=== PATIENT | female | born 2005 | race Caucasian/White ===

== ENCOUNTER 2025-01-19 12:54 | Emergency (ER) | payer BC, SELFPAY ==
[2025-01-19 12:59] LABS: Glucose - Point of Care 279 mg/dl (70-99)
--- NOTE | 2025-01-19 14:44 | ED.GENMED ---
History of Present Illness
General
Chief Complaint: Blood Sugar Problem
Source: patient
Exam Limitations: none
Time Seen by Provider: 01/19/25 14:12
Nursing documentation reviewed up to this point in time: agreed with
History of Present Illness
History of Present Illness:
see MDM
Past History
Past History
ED Past Medical History: Hypothyroidism (hashimotos)
Social History
Tobacco: Non-smoker
Alcohol: None
Drug: None
Personal: Single
Living: with family
Employment: Employed
Review of Systems
Review of Systems
Allergies reviewed?: Yes
All Other Systems: Not applicable
Phy Exam
Physical Exam
Physical Exam:
GENERAL: Alert , in no apparent distress
EYE: pupils equal and reactive, normal EOMs,
NECK: Supple
ENT: o/p clr, mmm.
CARDIAC: Regular rate and rhythm .
LUNGS: Clear breath sounds bilaterally, no acute respiratory distress, no wheezes/rales/rhonchi
ABDOMEN: Soft, without focal tenderness, no r/g, no cvat, normal bowel sounds
NEUROLOGICAL: Alert and oriented, no focal neuro deficits
SKIN: Warm and dry, skin intact.
MUSCULOSKELETAL: No edema, well perfused. neg clara's sign
PSYCH: Normal and appropriate interaction.
Course
Orders/Labs/Results
Orders:
Orders
01/19/25 14:15
0.9% Sodium Chloride 1000 ml [Nss] 1,000 ml IV BOLUS
01/19/25 14:16
Test Result ONCE
01/19/25 14:45
BHB [B-Hydroxybutyrate] Urgent
Comprehensive Metabolic Panel Urgent
HCG, Serum Qualitative Screen Urgent
Lactic Acid Urgent
TSH Reflex To Free T4 Urgent
Urinalysis Reflex To Culture Urgent
Date Specimen was Collected: 01/19/25
Time Specimen was Collected: 14:17
Urine Microscopic Reflex Cult Urgent
Urine Culture Urgent
ANGELICA Source: U
Specimen Description:
Date Specimen was Collected: 01/19/25
Time Specimen was Collected: 14:17
01/19/25 16:07
Complete Blood Count/With Diff Urgent
Glycohemoglobin (HgbA1c) Urgent
01/19/25 16:33
Bedside Glucose- Treatment ONCE
Abnormal Lab Results
01/19/25 01/19/25 01/19/25
12:58 14:45 16:07
RBC 3.39 L 10^6/uL
(4.20-5.40)
Hgb 10.5 L g/dL
(12.0-16.0)
Hct 29.5 L %
(37.0-47.0)
Absolute Neuts (auto) 6.8 H 10^3/uL
(1.4-6.5)
Lymphocytes % 19.6 L %
(20.5-51.1)
Sodium 132 L mmol/L
(135-145)
Carbon Dioxide 20 L mmol/L
(22-30)
Creatinine 0.5 L mg/dL
(0.6-1.0)
Glucose 237 H mg/dl
(70-99)
Hemoglobin A1c 8.2 H %
(4.0-5.9)
Total Protein 8.6 H g/dl
(6.3-8.2)
Albumin 5.2 H g/dl
(3.5-5.0)
Urine Ketones 3+ A
(Negative)
Ur Occult Blood Reflex 2+ A
(Negative)
Leukocyte Esterase Rfl 1+ A
(Negative)
Urine RBC 3-6 A /HPF
(0-2)
Urine Bacteria (Reflex) Few A
(Negative)
Urine Glucose 4+ A
(Negative)
Urine Albumin (Reflex) 2+ A
(Neg - Trace)
B-Hydroxybutyrate 3.61 H mmol/L
(0.02-0.27)
POC Glucose 279 H mg/dl
(70-99)
01/19/25
16:51
RBC
Hgb
Hct
Absolute Neuts (auto)
Lymphocytes %
Sodium
Carbon Dioxide
Creatinine
Glucose
Hemoglobin A1c
Total Protein
Albumin
Urine Ketones
Ur Occult Blood Reflex
Leukocyte Esterase Rfl
Urine RBC
Urine Bacteria (Reflex)
Urine Glucose
Urine Albumin (Reflex)
B-Hydroxybutyrate
POC Glucose 214 H mg/dl
(70-99)
01/19/25 16:07
01/19/25 14:45
Vital Signs
Initial and Last Documented VS:
Initial Vital Signs
Temp Pulse Resp Pulse Ox
36.8 C 67 18 96
01/19/25 12:55 01/19/25 12:55 01/19/25 12:55 01/19/25 12:55
Last Documented Vital Signs
Temp Pulse Resp BP Pulse Ox
36.8 C 74 18 102/70 99
01/19/25 12:55 01/19/25 18:02 01/19/25 18:02 01/19/25 18:02 01/19/25 18:02
MDM/Problems Addressed
Differential Diagnosis Includes:
seeMDM
MDM/Problems Addressed:
Note:
CHIEF COMPLAINT(S)
- General feeling of unwellness
- Blurred vision
- Increased thirst and frequent urination
HISTORY OF PRESENT ILLNESS
The patient is a 19-year-old female with a history of Hashimotos thyroiditis, presenting with symptoms suggestive of hyperglycemia. Approximately two weeks ago, she began experiencing increased thirst and frequent urination, along with a general
sense of malaise. Over the past week, she developed blurred vision. The patient reports a recent blood sugar reading of 279 mg/dL after consuming a soft pretzel earlier in the day. She denies any recent infections, such as colds, coughs, or
diarrhea. The patient notes a family history of diabetes, with her father being diagnosed later in life. She last ate a soft pretzel around 10:00 to 10:15 AM, with her blood sugar measured approximately two hours later. The patient consumes drinks
with electrolytes and states that these beverages are sugar-free. She recently experienced menstrual bleeding and cramps despite being in the middle of her control pill pack. Vision symptoms prompted her to contact her eye doctor, but she has
yet to attend an appointment.
PAST MEDICAL AND SURGICAL HISTORY
- Hashimotos thyroiditis
CHRONIC MEDICAL CONDITIONS SIGNIFICANTLY AFFECTING CARE
- Hashimotos thyroiditis
SOCIAL DETERMINANTS AFFECTING HEALTH
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
REVIEW OF SYSTEMS
- General: Feeling unwell, increased thirst, and frequent urination.
- Eye: Blurred vision, with an appointment requested with the eye doctor.
- Endocrine: Reports of menstrual irregularities and cramps despite regular control use.
- No respiratory, gastrointestinal, or infectious symptoms reported.
PROBLEM LIST
- Acute: Hyperglycemia, blurred vision, increased thirst, frequent urination, menstrual irregularities.
- Chronic: Hashimotos thyroiditis
PLAN
- Initiate hydration with intravenous fluids to address intravascular dehydration.
- Conduct blood work, including hemoglobin A1c, to assess blood glucose levels over time.
- Perform a basic chemistry panel and thyroid function tests to evaluate metabolic and endocrine status.
- Obtain a urine sample for further analysis.
- Arrange follow-up with an assistant manager retail for potential ongoing diabetes management.
- Discuss visual symptoms with an artificial plastic eye maker, with an emphasis on follow-up appointments.
DIFFERENTIAL DIAGNOSIS
The Differential Diagnosis includes, in no particular order and is not limited to:
1. Type 1 Diabetes Mellitus
2. Type 2 Diabetes Mellitus
3. Hyperglycemia due to stress or medication
4. Diabetic Ketoacidosis
5. Hyperosmolar Hyperglycemic State
6. Thyroid Dysfunction
7. Autoimmune Polyendocrine Syndrome
8. Medication-induced hyperglycemia
9. Menstrual cycle-related hormonal changes
10. Infection-induced hyperglycemia
19-year-old female with history of Yolanda's thyroiditis followed by endocrine here for polydipsia, polyuria and blurred vision for the last 2 weeks. She checked her blood sugar which was about 1-1/2 hours after eating a soft pretzel while she
was at work and it was 270. Here it was 279. She is well-appearing, stable vital signs, no distress. I doubt she is not DKA but she will be evaluated with chemistry panel, beta hydroxybutyrate, urinalysis etc. I will order hemoglobin A1c. I did
reach out to Dr. stuart from her endocrine office who recommended that I start her on glipizide ER 5 mg daily and that she get a glucometer. If she is having low blood sugars over the weekend she can call him.
01/19/2025 1700 PM
Patient's chemistry panel shows an anion gap of 10, her sugar is 237, bicarb of 20. She does have urine ketones. Her and her beta hydroxybutyrate is elevated. I spoke with Dr. Castillo on-call for the endocrinology for [facility] who said
that this was not an indication to admit her. That she is not in DKA and does not need an insulin drip. He recommended that we start her checking her blood sugars routinely and that he see her early next week in the office as planned. He is aware
that I spoke with her assistant manager retail on-call who recommended the glipizide ER. Dr. Chen thought maybe this was not what he would do himself but was okay with it if that is what was the recommendation. I instead offered to cut the glipizide in
half just to avoid hypoglycemic state. He agreed with this plan. So the patient will start the glipizide tomorrow. She will get additional liter of fluids while she is waiting for her urinalysis. Patient is aware of what to return for,
specifically hyperglycemic episode with vomiting etc.
*Pulse Oximetry
SaO2: 96
Oxygen Mode of Delivery: Room air
Patient hypoxic: no (99)
*Critical Care Note
Total Time (30-74mins, 75-104mins- exclusive of procedures): Not Applicable
ED Attending Note
-
Portions of this chart may have been created with voice recognition software.� Occasional wrong word or��sound alike� substitutions may have occurred due to the inherent limitations of voice recognition software.
Discharge Plan
Departure
Patient Disposition: Home (Routine Discharge)
Date of Disposition: 01/19/25
Time of Disposition: 16:52
Patient with high blood pressure during this ER visit?: No
Discharge Problem:
Hyperglycemia, Diabetes
Instructions: Type 1 diabetes (DC), High blood sugar in adults - ED (DC)
Prescriptions:
New
(DME) blood sugar diagnostic Strip
See Rx Instructions .Route Qty: 30 0RF
Rx Instructions:
As directed
(DME) blood-glucose meter Kit
See Rx Instructions .Route Qty: 1 0RF
Rx Instructions:
As directed
glipizide 2.5 mg tablet extended release 24hr
2.5 mg PO DAILY Qty: 14 0RF
Stand Alone Forms: Back to School
Activity Restrictions/Additional Instructions:
Check your blood sugar in the morning, before lunch, before dinner and before bed and keep a monitor of this.
If your blood sugars are under 100 do not take the medication.
If your blood sugars under 70 you need to eat something immediately.
Return to the ER for vomiting or abdominal pain, lethargy, shakiness etc. or if your blood sugar is higher than 350
You can always call your doctor over the weekend if your blood sugars are abnormal and you are not sure what to do.
Return for any concerns.
Avoid carbohydrates excessively, candy, sugars etc.
Interventions
Interventions:
*Risk Screen - Suicide Last Done: 01/19/25 12:58
*General Assessment Last Done: 01/19/25 12:58
*Neglect/Abuse Screening Last Done: 01/19/25 12:58
*Nursing Disposition Last Done: 01/19/25 18:05
ED- Neurological Assessment Last Done: 01/19/25 14:20
ED- Cardiac Assessment Last Done: 01/19/25 14:20
Discharge Date and Time
Discharge Date/Time: 01/19/25 18:17
Print Language: [id number]
[2025-01-19] MEDS: NSS 1000 IV (14:46)
[2025-01-19 15:25] VITALS: BP 96/66
[2025-01-19 15:34] LABS: HCG, Serum Qualitative Screen Negative
[2025-01-19 15:47] LABS: ALT (SGPT) 22 U/L (0-35); AST (SGOT) 25 U/L (14-36); Albumin 5.2 g/dl (3.5-5.0); Alkaline Phosphatase 76 U/L (38-126); Blood Urea Nitrogen 12 mg/dl (7-17); Calcium 9.8 mg/dl (8.4-10.2); Carbon Dioxide 20 mmol/L (22-30); Chloride 102 mmol/L (98-107); Glucose 237 mg/dl (70-99); Potassium 4.3 mmol/L (3.5-5.1); Sodium 132 mmol/L (135-145); Total Protein 8.6 g/dl (6.3-8.2); eGFR > 60.00
[2025-01-19 16:47] LABS: Hematocrit 29.5 % (37.0-47.0); Hemoglobin 10.5 g/dL (12.0-16.0); Mean Corp Hgb Conc. 35.6 g/dL (33.0-37.0); Mean Corpuscular Volume 87.0 fL (81.0-99.0); Nucleated Red Blood Cells % 0 %; Platelet Count 273 10^3/uL (130-400); Red Cell Dist. Width 12.0 % (11.5-14.5)
[2025-01-19 16:53] LABS: Urine Character Clear (Clear)
[2025-01-19 16:53] LABS: Glucose - Point of Care 214 mg/dl (70-99)
[2025-01-19 18:02] VITALS: BP 102/70
[2025-01-20 09:40] LABS: Glycohemoglobin (HgbA1c) 8.2 % (4.0-5.9)
== END 2025-01-19 18:17 | disposition home or self-care (01) ==
LOC: EMR 12:54
PROVIDERS: Physician Assistant; EMERGENCY PHYSICIAN Emergency Medicine; FAMILY PHYSICIAN Family Medicine
DX: E11.65 Type 2 diabetes mellitus with hyperglycemia (principal); E06.3 Autoimmune thyroiditis; Z83.3 Family history of diabetes mellitus
CPT/HCPCS: 99283; 96360; 80053; 81003; 81015; 82010; 82962; 83036; 83605; 84443; 84703; 85025; 87086